=== PATIENT | female | born 1970 | race African-American/Black ===

== ENCOUNTER 2024-11-07 13:33 | Emergency (ER) | payer SELFPAY ==
[~2024-11-07] VITALS: Ht 165.1 cm; Wt 90.0 kg
[2024-11-07 13:33] VITALS: BP 120/94; RESP 20; TEMP 98.5; O2SAT 100
[2024-11-07 13:49] VITALS: PULSE 72
[2024-11-07] MEDS ORDERED: ALBUTEROL SULF 2.5 MG/0.5ML(0.5%) NEB SOLN NEB ONE (20:45)
[2024-11-07] MEDS ORDERED: IPRATROPIUM BROM 0.5 MG/2.5ML INH SOL NEB ONE (20:45)
[2024-11-07] MEDS: ALBUTEROL SULF 2.5 MG/0.5ML(0.5%) NEB SOLN ONE (20:53)
[2024-11-07] MEDS: IPRATROPIUM BROM 0.5 MG/2.5ML INH SOL ONE (20:53)
--- NOTE | 2024-11-09 08:47 | ECG ---
[facility] Test Date: 2024-11-07 Test Time: 13:49:51 Pat Name: ELY MONTEIRO Department: ER Room: Gender: F Order Dispatcher: OB : [id number] Requested By: SRIDHAR BEEBE Order Number: [id number] Reading MD: Wilber Michel Measurements Intervals [place] Rate: 72 P: 53 CT: 154 QRS: -31 QRSD: 85 T: 35 QT: 413 QTc: 453 Interpretive Statements Sinus rhythm Probable left atrial enlargement Left axis deviation Low voltage, precordial leads Electronically Signed On 11-11-2024 20:16:19 PDT by Wilber Michel Please click the below link to view image of tracing.
== END 2024-11-07 21:09 | disposition left against medical advice (07) ==
LOC: ER 13:33
DX: R06.02 Shortness of breath (principal); Z53.21 Procedure and treatment not carried out due to patient leaving prior to being seen by health care provider
CPT/HCPCS: 82947; 82962; 93005